=== PATIENT | female | born 1965 | race Caucasian/White ===

== ENCOUNTER 2020-06-09 00:44 | Emergency (ER) | payer OTHER ==
[2020-06-09 05:22] LABS: HEMOGLOBIN 11.7 gm/dl (12.3-15.3); RED BLOOD COUNT 4.07 M/UL (4.00-5.10); WHITE BLOOD COUNT 8.6 K/UL (4.5-11.0)
[2020-06-09 05:46] LABS: BUN/CREATININE RATIO 7 (0-10)
[2020-06-09] MEDS ORDERED: PERCOCET 5/325 T1 EA PO (05:58)
== END 2020-06-09 09:45 | disposition home or self-care (01) ==
LOC: ER1 00:44
PROVIDERS: Family Medicine
DX: S86.911A Strain of unspecified muscle(s) and tendon(s) at lower leg level, right leg, initial encounter (principal); S76.011A Strain of muscle, fascia and tendon of right hip, initial encounter; I10 Essential (primary) hypertension; E11.9 Type 2 diabetes mellitus without complications; J45.909 Unspecified asthma, uncomplicated; Z79.4 Long term (current) use of insulin; Z79.899 Other long term (current) drug therapy; Z88.0 Allergy status to penicillin; Z88.6 Allergy status to analgesic agent; Z88.8 Allergy status to other drugs, medicaments and biological substances; W07.XXXA Fall from chair, initial encounter
CPT/HCPCS: 71045; 73502; 73552; 80053; 82550; 82553; 82962; 83874; 84484; 85025; 93005; 99284

== ENCOUNTER 2020-06-09 12:59 | Emergency (ER) | payer OTHER ==
[~2020-06-09 12:59] MED LIST: PERCOCET 5/325 T1 EA PO
[2020-06-09 21:17] LABS: HEMOGLOBIN 11.5 gm/dl (12.3-15.3); RED BLOOD COUNT 4.02 M/UL (4.00-5.10); WHITE BLOOD COUNT 6.8 K/UL (4.5-11.0)
[2020-06-09 21:42] LABS: BUN/CREATININE RATIO 11 (0-10)
== END 2020-06-10 10:44 | disposition home or self-care (01) ==
LOC: ER1 12:59
PROVIDERS: Family Medicine
DX: S30.0XXA Contusion of lower back and pelvis, initial encounter (principal); I10 Essential (primary) hypertension; E11.9 Type 2 diabetes mellitus without complications; J45.909 Unspecified asthma, uncomplicated; Z88.0 Allergy status to penicillin; Z88.6 Allergy status to analgesic agent; Z88.5 Allergy status to narcotic agent; Z88.8 Allergy status to other drugs, medicaments and biological substances; W07.XXXA Fall from chair, initial encounter; Y92.238 Other place in hospital as the place of occurrence of the external cause
CPT/HCPCS: 36600; 71045; 72220; 80053; 80307; 82550; 82553; 82803; 84484; 85025; 85610; 94640; 94664; 94760; 99285; G0480

== ENCOUNTER 2020-12-24 19:27 | Emergency (ER) | payer OTHER, MEDICAID | END 2020-12-24 21:46 | disposition home or self-care (01) | LOC: ER1 19:27 | DX: M25.551 Pain in right hip (principal); M79.604 Pain in right leg; E11.9 Type 2 diabetes mellitus without complications; Z79.4 Long term (current) use of insulin; I11.9 Hypertensive heart disease without heart failure; E78.5 Hyperlipidemia, unspecified; Z90.49 Acquired absence of other specified parts of digestive tract | CPT/HCPCS: 73502; 73552; 99283 ==